=== PATIENT | female | born 1980 | race Hispanic/Latino ===

== ENCOUNTER 2017-04-20 05:34 | Emergency (ER) | payer BC ==
[2017-04-20 05:45] VITALS: BMI 25.0
[2017-04-20 05:46] VITALS: BP 132/94; PULSE 110; RESP 16; TEMP 97.5; O2SAT 100
[2017-04-20] MEDS ORDERED: Oxycodone/Acetaminophen 5/325 mg Tab PO ONE (05:48)
[2017-04-20] MEDS ORDERED: Amoxicillin-Clav 875-125 mg Tab PO STA (05:52)
--- NOTE | 2017-04-20 05:54 | ED PDOC ---
HPI: CCC, URI, Sore Throat Time Seen by Provider: 04/20/17 05:47 Chief Complaint (Nursing): ENT Problem Chief Complaint (Provider): left ear pain History Per: Patient History/Exam Limitations: no limitations Onset/Duration Of Symptoms: Hrs (5) Current Symptoms Are (Timing): Still Present Additional History Per: Patient Additional Complaint(s): 37 y/o male presents with severe left ear pain x 5 hours. Patient states she has been with cold-symptoms/congestion x 1 week, flew on an airplane 5 days ago and noted pressure to get worse in left ear but was tolerable. Patient states as of 1:00 pain woke her from her sleep, with associated brown drainage. Denies fever, hearing changes. Past Medical History Reviewed: Historical Data, Nursing Documentation, Vital Signs Vital Signs: Last Vital Signs Temp 97.5 F L 04/20/17 05:43 Pulse 110 H 04/20/17 05:43 Resp 16 04/20/17 05:43 BP 132/94 H 04/20/17 05:43 Pulse Ox 100 04/20/17 05:43 - Medical History PMH: Hypothyroidism Other PMH: Peptic ulcer disease - Surgical History Surgical History: No Surg Hx - Family History Family History: States: No Known Family Hx - Living Arrangements Living Arrangements: With Family - Home Medications Home Medications: Ambulatory Orders Medication Instructions Recorded Amoxicillin/Clavulanate [Augmentin 1 tab PO Q12 #19 tab 04/20/17 875 MG-125 MG] Ofloxacin Otic 0.3% [Floxin 0.3% 10 drop OT DAILY 7 Days 04/20/17 Otic Soln] traMADol [Ultram] 50 mg PO Q8 PRN #10 tab 04/20/17 - Allergies Allergies/Adverse Reactions: Allergies Allergy/AdvReac Type Severity Reaction Status Date / Time No Known Allergies Allergy Verified 04/20/17 05:43 Review of Systems ROS Statement: Except As Marked, All Systems Reviewed And Found Negative ENT: Positive for: Ear Pain (left) Physical Exam - Reviewed Nursing Documentation Reviewed: Yes Vital Signs Reviewed: Yes - Physical Exam Appears: Positive for: Well, Non-toxic, In Acute Distress (crying) Head Exam: Positive for: ATRAUMATIC, NORMAL INSPECTION, NORMOCEPHALIC Skin: Positive for: Normal Color ENT: Positive for: TM Is/Are (Left TM perforation. Right TM clear. EAC's clear bilaterally. No mastoid swelling/tenderness bilaterally) Cardiovascular/Chest: Positive for: Regular Rate, Rhythm Respiratory: Positive for: Normal Breath Sounds Extremity: Positive for: Normal ROM Neurologic/Psych: Positive for: Alert, Oriented - ECG O2 Sat by Pulse Oximetry: 100 - Progress ED Course And Treament: Patient educated on findigns, discharged with rx Augmentin (dose given), Ofloxacin, Tramadol. ADvised ENT follow up. Return precautions given. Disposition - Clinical Impression Clinical Impression: Otitis media, acute with perforation of eardrum - Patient ED Disposition Is Patient to be Admitted: No Counseled Patient/Family Regarding: Diagnosis, Need For Followup, Rx Given - Disposition Disposition: Routine/Home Disposition Time: 05:55 Condition: IMPROVED Prescriptions: Amoxicillin/Clavulanate [Augmentin 875 MG-125 MG] 1 tab PO Q12 #19 tab Ofloxacin Otic 0.3% [Floxin 0.3% Otic Soln] 10 drop OT DAILY 7 Days traMADol [Ultram] 50 mg PO Q8 PRN #10 tab PRN Reason: Pain, Severe (8-10) Instructions: Otitis Media (ED), Ruptured Eardrum (ED) Forms: [employer] (Dominican)
== END 2017-04-20 06:12 | disposition home or self-care (01) ==
LOC: H.ER 05:34
DX: H72.92 Unspecified perforation of tympanic membrane, left ear (principal)